=== PATIENT | female | born 2000 | race Hispanic/Latino ===

== ENCOUNTER 2021-03-05 09:32 | Emergency (ER) | payer OTHER ==
[~2021-03-05] VITALS: Ht 149.9 cm; Wt 53.5 kg
[2021-03-05] MEDS ORDERED: BELLADONNA ALK/PHENOBARBITAL 5 ML UDC ONE (11:26)
[2021-03-05] MEDS ORDERED: LIDOCAINE VISC 2% SOLN 15 ML UDC ONE (11:26)
[2021-03-05] MEDS ORDERED: FAMOTIDINE 20 MG/2 ML VIAL IV ONE (11:26)
[2021-03-05] MEDS ORDERED: MAGNESIUM/ALUMINUM/SIMETHICONE 30 ML UDC ONE (11:26)
[2021-03-05] MEDS ORDERED: FAMOTIDINE 20 MG/2 ML VIAL IV STA (11:29)
[2021-03-05] MEDS ORDERED: ONDANSETRON HCL INJ 2MG/ML 2ML 2 MG/ML VIAL IV STA (11:29)
[2021-03-05] MEDS ORDERED: SODIUM CHLORIDE 0.9% 1000ML 1,000 ML IV STA (11:29)
[2021-03-05] MEDS ORDERED: DONNATAL/LIDOCAINE/MAALOX 30 ML SUSP PO ONE (11:30)
[2021-03-05] MEDS ORDERED: DONNATAL/LIDOCAINE/MAALOX 30 ML SUSP PO SCH ×2 (11:30)
[2021-03-05] MEDS ORDERED: ONDANSETRON HCL INJ 2MG/ML 2ML 2 MG/ML VIAL ONE (11:31)
[2021-03-05] MEDS ORDERED: SODIUM CHLORIDE 0.9% 1000ML 1,000 ML ONE (11:31)
[2021-03-05] MEDS ORDERED: PANTOPRAZOLE SO40 MG PO (12:34)
[2021-03-05] MEDS ORDERED: FAMOTIDINE40 MG PO (12:35)
[2021-03-05 12:47] VITALS: BP 116/70
== END 2021-03-05 12:47 | disposition home or self-care (01) ==
LOC: FSED 09:56
DX: R10.13 Epigastric pain (principal); R11.2 Nausea with vomiting, unspecified; K29.70 Gastritis, unspecified, without bleeding; K21.9 Gastro-esophageal reflux disease without esophagitis
CPT/HCPCS: 80048; 80076; 81003; 81025; 85025; 99283; J2405; J7030